=== PATIENT | female | born 1970 | race Caucasian/White ===

== ENCOUNTER 2018-07-31 21:38 | Emergency (ER) | payer BC ==
[~2018-07-31] VITALS: Ht 170.2 cm; Wt 93.0 kg
[2018-07-31 21:38] VITALS: BP_SYST 121
[2018-07-31 23:28] LABS: BASOPHILS % (AUTO) 0.6 % (0.0-2.0); EOSINOPHILS # (AUTO) 0.1 K/uL (0.0-0.4); EOSINOPHILS % (AUTO) 1.6 % (0.0-4.0); HEMATOCRIT 40.2 % (36-48); HEMOGLOBIN 13.6 g/dL (12.0-16.0); LYMPHOCYTES # (AUTO) 2.3 K/uL (1.0-5.5); LYMPHOCYTES % (AUTO) 31.8 % (20.5-51.5); MEAN CORPUSCULAR HEMOGLOBIN 28 pg (27-31); MEAN CORPUSCULAR HGB CONC 34 % (32-36); MEAN CORPUSCULAR VOLUME 84 fL (79.0-98.0); MONOCYTES # (AUTO) 0.6 K/uL (0.0-1.0); MONOCYTES % (AUTO) 8.2 % (1.7-9.3); NEUTROPHILS # (AUTO) 4.2 K/uL (1.8-7.7); NEUTROPHILS % (AUTO) 57.8 % (40.0-70.0); PLATELET COUNT (AUTO) 271 K/uL (130-430); RED BLOOD CELL COUNT(AUTO) 4.79 MIL/uL (4.2-6.2); RED CELL DISTRIBUTION WIDTH 13.1 % (9.0-15.0); WHITE BLOOD COUNT (AUTO) 7.2 K/uL (4.8-10.8)
[2018-07-31 23:47] LABS: ALBUMIN 3.3 g/dL (3.4-4.8); CREATININE 1.01 mg/dL (0.55-1.30); POTASSIUM 3.1 mmol/L (3.5-5.1); TOTAL BILIRUBIN 0.4 mg/dL (0.0-1.0)
[2018-08-01] MEDS ORDERED: METHOCARBAMOL 500 MG TABLET PO ONE
[2018-08-01 01:02] VITALS: BP_SYST 136
== END 2018-08-01 00:50 | disposition home or self-care (01) ==
LOC: SED 21:38
DX: F41.0 Panic disorder [episodic paroxysmal anxiety] (principal)
CPT/HCPCS: 36415; 80053; 85025; 93005; 99284

== ENCOUNTER 2021-11-30 16:23 | Emergency (ER) | payer BC ==
[~2021-11-30] VITALS: Ht 170.2 cm; Wt 91.6 kg
[2021-11-30 16:31] VITALS: BP_SYST 142
--- NOTE | 2021-11-30 18:41 | NUR ---
Patient to ER bed H2 to gown for evaluation. Side rails up.
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
[2021-11-30] MEDS ORDERED: IBUP-1969 PO (19:03)
--- NOTE | 2021-11-30 19:39 | NUR ---
Patient given written and verbal discharge instructions and verbalizes understanding. ER MD discussed with patient the results and treatment provided. Patient in stable condition. ID arm band removed. Rx of IBUPROFEN given. Patient educated on pain management and to follow up with PMD. Pain Scale 2/10 TOLERABLE PAIN. SPLINT APPLIED. SENSATION AND CAP REFILL ON RUE WNL.COD PACK PROVIDED. INSTRUCTED TO MAKE A FF-UP APPT W/PCP. Opportunity for questions provided and answered. Medication side effect fact sheet provided.
== END 2021-11-30 19:44 | disposition home or self-care (01) ==
LOC: SED 16:23
DX: S60.221A Contusion of right hand, initial encounter (principal); Z79.899 Other long term (current) drug therapy; W26.8XXA Contact with other sharp object(s), not elsewhere classified, initial encounter; Y93.89 Activity, other specified; Y92.89 Other specified places as the place of occurrence of the external cause; Y99.8 Other external cause status
CPT/HCPCS: 99283

== ENCOUNTER 2022-05-10 16:21 | Emergency (ER) | payer BC ==
[~2022-05-10] VITALS: Ht 170.2 cm; Wt 90.7 kg
[~2022-05-10 16:21] MED LIST: IBUP-1969 PO
[2022-05-10 16:30] VITALS: BP_SYST 110
--- NOTE | 2022-05-10 16:30 | NUR ---
Patient to [facility] for evaluation.
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
--- NOTE | 2022-05-10 16:34 | NUR ---
NOTIFIED NEED FOR MSE
[2022-05-10] MEDS ORDERED: HYDROcodone/ACETAMIN 10-325 MG TAB PO ONE ×2 (16:45→19:30)
[2022-05-10] MEDS ORDERED: KETOROLAC TROMETHAMINE 60 MG/2 ML VIAL IM ONE (16:45)
[2022-05-10] MEDS ORDERED: ONDANSETRON 4 MG ODT TAB PO ONE ×2 (16:45→18:00)
--- NOTE | 2022-05-10 16:46 | NUR ---
ER at bedside examining patient.
--- NOTE | 2022-05-10 16:56 | NUR ---
PATIENT MOVED TO HALLWAY BED.
--- NOTE | 2022-05-10 17:06 | NUR ---
PATIENT OFF UNIT TO RADIOLOGY
--- NOTE | 2022-05-10 17:29 | NUR ---
RECEIVED PT FROM SARITA PENG. ASSUMED CARE. PT TAKEN TO CT SCAN AT THIS TIME.
[2022-05-10] MEDS ORDERED: MORPHINE 4 MG INJ. 4 MG/ML VIAL IM ONE ×2 (18:00→21:15)
[2022-05-10] MEDS ORDERED: LIDOCAINE JELLY 5 ML TUBE MM ONE (18:30)
[2022-05-10] MEDS ORDERED: LIDOCAINE 1% 10 MG/ML, 20 ML MDV INJ ONE (18:30)
--- NOTE | 2022-05-10 18:44 | NUR ---
MORPHINE 4MG IVP GIVEN.
--- NOTE | 2022-05-10 19:33 | NUR ---
PT MEDICATED PER MD ORDER. SEE eMAR.
--- NOTE | 2022-05-10 19:34 | NUR ---
PT ENDORSED TO [facility] EVANS. ALL QUESTIONS AND CONCERNS ADDRESSED.
--- NOTE | 2022-05-10 19:54 | NUR ---
BACITRACIN APPLIED TO FOREHEAD CLOSED LACERATION S/P SUTURING.
[2022-05-10] MEDS ORDERED: BACITRACIN 1 GM OINT TP ONE (21:00)
--- NOTE | 2022-05-10 21:13 | NUR ---
BACITRACIN APPLIED TO LEFT ELBOW AFTER LAC REPAIR. WOUND DRESSED WITH NON-ADHERENT DRESSING, GAUZA AND TAPE.
[2022-05-10] MEDS ORDERED: cephALEXin 500 MG CAPSULE PO ONE (21:15)
[2022-05-10] MEDS ORDERED: DIPHTH,PERTUSS(ACELL),TET VAC 0.5 ML VIAL (Tdap) I.M. ONE (21:15)
[2022-05-10] MEDS ORDERED: HYDR-3917 PO (21:32)
[2022-05-10] MEDS ORDERED: IBUP-1971 PO ×2 (21:32→21:37)
[2022-05-10] MEDS ORDERED: CEPH-548 PO (21:37)
[2022-05-10] MEDS ORDERED: TRAM50TA2 PO (21:37)
[2022-05-10] MEDS ORDERED: BACL20TA PO (21:41)
[2022-05-10 22:12] VITALS: BP_SYST 117
--- NOTE | 2022-05-10 22:15 | NUR ---
Patient given written and verbal discharge instructions and verbalizes understanding. ER MD discussed with patient the results and treatment provided. Patient in stable condition. ID arm band removed. Rx of BACLOFEN, TYLENOL given. Patient educated on pain management and to follow up with PMD. Pain Scale . Opportunity for questions provided and answered. Medication side effect fact sheet provided.
== END 2022-05-10 22:12 | disposition home or self-care (01) ==
LOC: SED 16:21
DX: S42.292A Other displaced fracture of upper end of left humerus, initial encounter for closed fracture (principal); Z79.899 Other long term (current) drug therapy; V18.0XXA Pedal cycle driver injured in noncollision transport accident in nontraffic accident, initial encounter; Y93.89 Activity, other specified; Y92.89 Other specified places as the place of occurrence of the external cause; Y99.8 Other external cause status
CPT/HCPCS: 99285; 70450; 73030; 73060; 73080; 73502; 70486; 76376; 90715; 96372; 90471; Q0162; J1885; J2001; J2270